=== PATIENT | female | born 1935 | race Caucasian/White ===

== ENCOUNTER → 2018-08-14 | Outpatient (CLI) | payer MEDICARE | END | disposition home or self-care (01) | LOC: PCVCCLINIC 14:47 | PROVIDERS: ATTEND Internal Medicine Cardiovascular Disease | DX: I34.0 Nonrheumatic mitral (valve) insufficiency (principal); R00.0 Tachycardia, unspecified; M19.90 Unspecified osteoarthritis, unspecified site; E78.5 Hyperlipidemia, unspecified | CPT/HCPCS: 36415; 80061; 93005; G0463 ==

== ENCOUNTER → 2018-09-01 | Outpatient (CLI) | payer MEDICARE ==
--- NOTE | 2018-09-01 15:24 | PCVCIMAG ---
APPROVED REPORT Study performed: 09/01/2018 12:41:37 EXAM: Comprehensive 2D, Doppler, and color-flow Echocardiogram Patient Location: Echo lab Status: routine BSA: 1.60 HR: 81 bpmBP: 160/80 mmHg Rhythm: NSR Other Information Study Quality: Adequate Indications Tachycardia mitral regurgitation 2D Dimensions IVSd: 11.36 (7-11mm) LVDd: 29.44 mm PWd: 9.64 (7-11mm)Ascending Ao: 31.46 (22-36mm) LVDs: 22.37 (25-40mm) Left Atrium: 27.47 (27-40mm) Aortic Root: 28.85 mm LV Single Plane 4CH: 64.08 % LV Single Plane 2CH: 57.11 % Biplane EF: 62.7 % Volumes Left Atrial Volume (Systole) Single Plane 4CH: 24.96 mLSingle Plane 2CH: 39.13 mL LA ESV Index: 20.00 mL/m2 Aortic Valve AoV Peak Neville.: 1.21 m/s AO Peak Gr.: 5.86 mmHgLVOT Max P.94 mmHg LVOT Max V: 0.99 m/s Mitral Valve E/A Ratio: 0.6 MV Decel. Time: 227.28 ms MV E Max Neville.: 0.63 m/s MV A Neville.: 1.08 m/s IVRT: 114.19 ms Pulmonary Valve PV Peak Neville.: 0.88 m/sPV Peak Gr.: 3.07 mmHg Pulmonary Vein P Vein S: 0.26 m/sP Vein A: 0.44 m/s P Vein D: 0.33 m/sP Vein A Dur.: 152.2 msec P Vein S/D Ratio: 0.79 Tricuspid Valve TR Peak Neville.: 2.45 m/s TR Peak Gr.: 24.01 mmHg TV Vmax: 0.41 m/s Left Ventricle The left ventricle is normal size. There is normal LV segmental wall motion. There is normal left ventricular wall thickness. Left ventricular systolic function is normal. The left ventricular ejection fraction is within the normal range. LVEF is 55-60%. Grade I - abnormal relaxation pattern. Right Ventricle Right ventricle is mildly dilated. The right ventricular systolic function is normal. Atria The left atrium size is normal. Right atrium is mildly dilated. Aortic Valve The aortic valve is normal in structure. Trace aortic regurgitation. There is no aortic valvular stenosis. Mitral Valve The mitral valve is normal in structure. Mild mitral regurgitation. No evidence of mitral valve stenosis. Tricuspid Valve The tricuspid valve is normal in structure. Mild tricuspid regurgitation with PAP of 31 mmHg. Pulmonic Valve The pulmonary valve is normal in structure. Trace pulmonic regurgitation. Great Vessels The aortic root is normal in size. IVC is normal in size and collapses >50% with inspiration. Pericardium There is no pericardial effusion. There is no pleural effusion. <Conclusion> The left ventricle is normal size. LVEF is 55-60%. Grade I - abnormal relaxation pattern. Right ventricle is mildly dilated. Right atrium is mildly dilated. Trace aortic regurgitation. Mild mitral regurgitation. Mild tricuspid regurgitation with PAP of 31 mmHg. The aortic root is normal in size. There is no pericardial effusion.
== END | disposition home or self-care (01) ==
LOC: PCVCIMAG 12:41
PROVIDERS: ATTEND Internal Medicine Cardiovascular Disease
DX: I08.1 Rheumatic disorders of both mitral and tricuspid valves (principal); R00.0 Tachycardia, unspecified
CPT/HCPCS: 93306; G0463

== ENCOUNTER → 2019-05-14 | Outpatient (CLI) | payer MEDICARE | END | disposition home or self-care (01) | LOC: PCVCCLINIC 15:42 | PROVIDERS: ATTEND Internal Medicine Cardiovascular Disease | DX: I34.0 Nonrheumatic mitral (valve) insufficiency (principal); I45.10 Unspecified right bundle-branch block; R94.31 Abnormal electrocardiogram [ECG] [EKG]; E78.00 Pure hypercholesterolemia, unspecified; Z88.8 Allergy status to other drugs, medicaments and biological substances; Z79.899 Other long term (current) drug therapy | CPT/HCPCS: 36415; 80061; 93005; G0463 ==